=== PATIENT | female | born 1990 | race Caucasian/White ===

== ENCOUNTER 2024-12-31 10:18 | Emergency (ER) | payer OTHER, MEDICAID ==
[~2024-12-31] VITALS: Ht 160 cm; Wt 48.0 kg
[2024-12-31 10:21] VITALS: TEMP 36.3; O2SAT 99
[2024-12-31] MEDS: TETANUS, DIPHTHERIA, PERTUSSIS VAC/PF 0.5ML (>10YR OLD) IM ONE (11:33)
[2024-12-31 11:34] VITALS: BP 102/67; PULSE 84; RESP 12
[2024-12-31] MEDS: KETOROLAC 15MG/ML VIAL IM ONE (11:34)
[2024-12-31] MEDS ORDERED: BO1 TP (16:07)
[2024-12-31] MEDS ORDERED: NAPR-681 MT (16:07)
== END 2024-12-31 16:19 | disposition home or self-care (01) ==
LOC: ER 10:18
DX: S90.512A Abrasion, left ankle, initial encounter (principal); S90.511A Abrasion, right ankle, initial encounter; M54.2 Cervicalgia; Z79.899 Other long term (current) drug therapy; V09.9XXA Pedestrian injured in unspecified transport accident, initial encounter; Y93.55 Activity, bike riding; Y92.410 Unspecified street and highway as the place of occurrence of the external cause; Y99.8 Other external cause status; Z79.1 Long term (current) use of non-steroidal anti-inflammatories (NSAID)
CPT/HCPCS: 99285; 70450; 81025; 73502; 73610; 73630; 72125; 90715; 90471; 96372; J1885